=== PATIENT | female | born 1965 | race Caucasian/White ===

== ENCOUNTER 2019-05-21 16:03 | Emergency (ER) | payer OTHER, MEDICAID, SELFPAY ==
[2019-05-21 16:05] VITALS: BP 124/78; PULSE 70; RESP 16; TEMP 37; O2SAT 98; BMI 25.8
--- NOTE | 2019-05-21 16:52 | ED_ITS ---
HPI - Extremity Injury (Lower) <GARCÍA Penn - Last Filed: 05/21/19 18:12> General Chief Complaint: Extremity Injury, Lower Stated Complaint: left ankle wound bleeding Time Seen by Provider: 05/21/19 16:10 Source: patient Mode of arrival: Ambulatory History of Present Illness HPI Narrative: 54-year-old female presents to the emergency department complaining a wound to the left side of her ankle. She states back in February she fractured her ankle and had an operation with ?stool plates placed in the bone ?. After surgery, she states ?I tried to follow-up but they [ortho] or running leg, then they canceled my appointment and rescheduled, and I was late for another appointment and they they told me to come back but I was tired of dealing with everything so I cut the cast off myself ?. Patient states she has been wearing her boot since the appointment. She states that a few days ago her boot got wet and the edge of the surgical scar which was healing started to soften, she states there is a small amount of exudate coming from the wound that has opened up slightly. However, she was more concerned about some redness that developed on the lateral side of her heel below her surgical wound. P atient does report worsening redness. She states that the swelling has not changed. She has not seen a physical therapist. She denies any other symptoms such as fevers, chest pain, shortness of breath, nausea, vomiting, diarrhea, or any other concerns. Related Data Previous Rx's Medication Instructions Recorded cephalexin 500 mg PO QID 7 Days #28 cap 05/21/19 Allergies Allergy/AdvReac Type Severity Reaction Status Date / Time amitriptyline Allergy Verified 05/21/19 16:14 prednisone Allergy Verified 05/21/19 16:14 Sulfa (Sulfonamide Allergy Verified 05/21/19 16:14 Antibiotics) Review of Systems <GARCÍA Penn - Last Filed: 05/21/19 18:12> Review of Systems Narrative: REVIEW OF SYSTEMS: GENERAL: Denies fever or chills. HENT: Denies head trauma. EYE: Denies double vision or vision loss. CARDIOVASCULAR: Denies syncope. MUSCULOSKELETAL: Denies weakness, or deformities. INTEGUMENTARY: Complains of wound to left lateral ankle see HPI. NEURO: Denies numbness or tingling. Patient History <GARCÍA Penn - Last Filed: 05/21/19 18:12> Medical History Ankle fracture (Acute) Social History Smoking Status: Current every day smoker Smoking Status: Current every day smoker tobacco type: cigarettes Substance Use Type: does not use Exam <GARCÍA Penn - Last Filed: 05/21/19 18:12> Initial Vital Signs Initial Vital Signs: Vital Signs Temperature 98.6 F 05/21/19 16:05 Pulse Rate 70 05/21/19 16:05 Respiratory Rate 16 05/21/19 16:05 Blood Pressure 124/78 05/21/19 16:05 Pulse Oximetry 98 05/21/19 16:05 PHYSICAL EXAMINATION: GENERAL: Well groomed, alert, and cooperative. Answers questions promptly and appropriately. Vital signs noted. HENT: Normocephalic, atraumatic. RESPIRATORY: Normal respiratory rate, trachea midline, airway patent. No stridor, nasal flaring or accessory muscle use. MUSCULOSKELETAL: Normal gait and coordination. Equal tone and mass bilaterally. EXTREMITIES: CMS intact. Moves all extremities. Patient is able to dorsiflex ankle approximately 30?, she states this has been normal since surgery. No severe tenderness to palpation of joint including malleolus. Pedal pulls to + and strong. Cap refill less than 2 seconds. SKIN: Warm, dry, soft, appropriate color for ethnicity. Healing surgical scar noted to lateral aspect of left ankle that extends past malleolus. Approximately 1/2 cm of distal scar appears to have slightly reopened, tissue is pink and granular. There is a small amount of exudate noted from the wound. However, below the left malleolus there is a patch of approximately 9 cm x 3 cm of increased erythema, slightly increased warmth, and slightly increased tenderness with palpation. There is significant swelling noted to left ankle, patient reports that this is normal since surgery. NEURO: Alert and Oriented X 3. Good coordination. PSYCH: Appropriate affect and mood. <Shannon Smith MD - Last Filed: 05/22/19 07:17> Initial Vital Signs Initial Vital Signs: Vital Signs Temperature 98.6 F 05/21/19 16:05 Pulse Rate 70 05/21/19 16:05 Respiratory Rate 16 05/21/19 16:05 Blood Pressure 124/78 05/21/19 16:05 Pulse Oximetry 98 05/21/19 16:05 Course <GARCÍA Penn - Last Filed: 05/21/19 18:12> Vital Signs Vital signs: Vital Signs - 8 hr 05/21/19 16:05 Temperature 98.6 F Pulse Rate 70 Respiratory Rate 16 Blood Pressure 124/78 Pulse Oximetry 98 <Shannon Smith MD - Last Filed: 05/22/19 07:17> Vital Signs Vital signs: Vital Signs - 8 hr 05/21/19 16:05 Temperature 98.6 F Pulse Rate 70 Respiratory Rate 16 Blood Pressure 124/78 Pulse Oximetry 98 MDM - Extremity Injury (Lower) <GARCÍA Penn - Last Filed: 05/21/19 18:12> Medical Records Attestation: I reviewed the patient's medical records. Lab Data Attestation: I reviewed the patient's lab results. MDM Narrative Medical decision making narrative: This is a 54-year-old female who was non compliant with follow-up after surgery to a left ankle fracture. It appeared that her wound has healed well, however recently she complained of a small amount exudate from the wound with worsening redness to the bottom of his her left foot. The wound appears to be mostly granular tissue, no significant signs of infection or pus. Differential for erythematous areas include dermatitis versus cellulitis. Due to history of surgery in the area about 2.5 months ago and history of non compliant follow-up, patient was prescribed cellulitis to treat possible infection. Wound was redressed. She was encouraged to keep the area clean and dry. Less concern for osteomyelitis or septic joint as visualization of the wound and redness was not impressive, patient lacks other systemic signs such as tachycardia or fever, and no tenderness to palpation of the joint. We talked extensively about the importance of follow-up especially physical therapy to help regain full range of motion in her ankle. Strict return precautions given for new or worsening symptoms. She agreed to plan of care verbalized understanding. Discharge Plan Departure Patient Disposition: Home Clinical Impression: Cellulitis of leg Qualifiers: Laterality: left Qualified Code(s): L03.116 - Cellulitis of left lower limb Discharge Date/Time: 05/21/19 17:01 Instructions: DI for Cellulitis -- Adult Activity Restrictions/Additional Instructions: Thank you for entrusting me with your care today. As discussed, the redness on your ankle and foot along with some discharge from your wound is concerning for infection. I have given you an antibiotic, please take this as directed. We have dressed your wound, please leave this wound dressing in place for the next 24 hours. Afterwards, cover the area with Neosporin and gauze. It is very important that you follow-up with your orthopedic as soon as possible to schedule physical therapy and re-evaluation. Return emergency department for new or worsening symptoms such as increased redness, significant swelling, worsening discharge, fevers, or any other concerns. Prescriptions: New cephalexin 500 mg capsule 500 mg PO QID 7 Days Qty: 28 RF: 0
== END 2019-05-21 17:01 | disposition home or self-care (01) ==
PROVIDERS: Emergency Provider Nurse Practitioner
DX: L03.116 Cellulitis of left lower limb (principal)
CPT/HCPCS: 99281

== ENCOUNTER 2019-06-14 17:25 | Emergency (ER) | payer OTHER, MEDICAID, SELFPAY ==
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
[2019-06-14 17:38] VITALS: BP 133/84; PULSE 81; RESP 16; TEMP 37; O2SAT 94
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
== END 2019-06-14 17:45 | disposition home or self-care (01) ==
PROVIDERS: Emergency Provider Emergency Medicine; PCP Family Medicine
DX: Z02.89 Encounter for other administrative examinations (principal); F10.129 Alcohol abuse with intoxication, unspecified
CPT/HCPCS: 99281